=== PATIENT | female | born 1995 | race African-American/Black ===

== ENCOUNTER 2018-04-03 12:03 | Outpatient (CLI) | payer OTHER ==
--- NOTE | 2018-04-03 15:23 | ULT ---
OB ULTRASOUND: HISTORY: Evaluate size and dates. TECHNIQUE: Multiple longitudinal and transverse images of an intrauterine are obtained using a Multi-H ertz curvilinear transducer. FINDINGS: Real-time, color-flow, and M-mode sonography demonstrate a viable intrauterine , with the fe tus in a cephalic presentation. The placenta is posterior. Cardiac activity is seen, measuring 146 beats per minute. BIOMETRICS: Biparietal diameter: 49 mm (20 weeks 6 days). Head circumference: 184 mm (20 weeks 6 days). Abdominal circumference: 153 mm (20 weeks 4 days). Femur length: 34 mm (20 weeks 6 days). Composite age: 20 weeks 6 days. Estimated weight: 366 g, +/- 53 g. Cervical length measures 4.5 cm. anatomic survey is grossly unremarkable. Intracranial structures, four-chamber heart, stomach, kidneys, cord insertion, and urinary bladder are unremarkable. The lips, nose, and upper and lower extremities are unremarkable. A three-vessel umbilical cord is seen. IMPRESSION: Viable intrauterine with an estimated gestational age of 20 weeks 6 days. Estimated date o f delivery is 08/15/2018. POS: [facility]
== END 2018-04-03 12:04 | disposition home or self-care (01) ==
LOC: BICULT 12:03
PROVIDERS: ATTEND Family Medicine
DX: O09.892 Supervision of other high risk pregnancies, second trimester (principal); Z3A.20 20 weeks gestation of pregnancy
CPT/HCPCS: 76805